=== PATIENT | male | born 2000 | race African-American/Black ===

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

== ENCOUNTER 2020-03-25 12:40 | Emergency (ER) | payer OTHER ==
[2020-03-26 14:36] LABS: SARS-CoV-2 MS2 Positive; SARS-CoV-2 N Gene Positive; SARS-CoV-2 S Gene Positive; SARS-CoV-2 orf1ab Positive
== END 2020-03-25 13:41 | disposition home or self-care (01) ==
LOC: ERS 12:40
DX: U07.1 COVID-19 (principal); J44.9 Chronic obstructive pulmonary disease, unspecified
CPT/HCPCS: 87635; 99283; U0003

== ENCOUNTER 2020-04-04 14:37 | Emergency (ER) | payer OTHER ==
[2020-04-05 12:03] LABS: SARS-CoV-2 MS2 Positive; SARS-CoV-2 N Gene Positive; SARS-CoV-2 S Gene Positive; SARS-CoV-2 by NAA DETECTED (NotDetected); SARS-CoV-2 orf1ab Positive
== END 2020-04-04 15:06 | disposition home or self-care (01) ==
LOC: ERS 14:37
DX: U07.1 COVID-19 (principal); J44.9 Chronic obstructive pulmonary disease, unspecified
CPT/HCPCS: 87635; 99283; U0003